=== PATIENT | male | born 1980 | race Caucasian/White ===

== ENCOUNTER 2016-05-25 05:30 | Emergency (ER) | payer MEDICARE, MEDICAID ==
[~2016-05-25 05:30] MED LIST: AMITRIPTYLINE H50 M1 PO; AMPICILLIN500 MG PO; ATIVAN0.5 MG PO; ATIVAN1 M1 PO; ATIVAN1 M2 PO; ATRIPLA TABLET1 TAB PO; BUTRANS1 EAC1 TD; COMPAZINE PO; COMPAZINE10 MG PO; CYMBALTA30 M1 PO; CYMBALTA60 M1 PO; EDURANT PO; EDURANT25 MG PO; ELAVIL GT; EPIVIR PO; EPIVIR300 MG PO; HYCET 7.5 MG-3473 M2 PO; HYDROCODONE CO; HYDROCODONE CO120 M1 PO; IBUPROFEN800 MG PO; ISENTRESS400 M1 PO; ISENTRESS400 MG PO; KLONOPIN2 M1 PO; KLONOPIN2 MG PO; LEVBID0.375 MG PO; LEXAPRO10 M1 PO; LEXAPRO5 MG PO; METOPROLOL SUC100 M1 PO; NORCO 5/325 TAB1 TAB PO; NORCO 5/3251 TAB PO; NORCO 7.5/325 T1 TAB PO; NORCO 7.5/3251 TA1 PO; NORCO 7.5/3251 TAB PO; PHENERGAN25 M1 PO; PHENERGAN25 M3 RC; PROMETHAZINE PO; PROMETHAZINE25 MG PO; TOPROL XL100 MG PO; TRAZODONE50 MG PO; VALTREX500 MG; XANAX1 MG; ZOFRAN ODT4 MG PO; ZOFRAN ODT4 MG/UDTAB PO; ZOFRAN4 MG PO
[2016-05-25 06:40] LABS: BASO % 0.5 % (0-2); BASO ABSOLUTE COUNT 0.1 tho/cmm (0.0-0.2); EOS % 0.9 % (0-7); EOSINOPHIL ABSOLUTE COUNT 0.1 tho/cmm (0.0-0.7); HCT-HEMATOCRIT 44.1 % (36.0-53.5); HGB-HEMOGLOBIN 15.7 gm/dl (13.5-17.0); IMMATURE GRANULOCYTES ABSOLUTE 0.02 tho/cmm (0-0.03); IMMATURE GRANULOCYTES PERCENT 0.2 % (0-0.3); LYMPH % 21.7 % (20-45); LYMPH ABSOLUTE COUNT 2.2 tho/cmm (0.8-4.5); MCH (MEAN CORPUSCULAR HGB) 33.6 pg (28.0-32.0); MCHC MEAN CORPUSCULAR HGB CONC 35.6 % (32.0-36.0); MCV (MEAN CELL VOLUME) 94.4 fl (82.0-96.0); MEAN PLATELET VOLUME 9.6 cmc (9.4-12.4); MONO % 8.2 % (0-12); MONOCYTE ABSOLUTE COUNT 0.8 tho/cmm (0.0-1.2); NEUTROPHILS % 68.5 % (40-80); PLATELET COUNT 245 tho/cmm (150-450); RED BLOOD COUNT 4.67 mil/cmm (4.40-5.70); RED CELL DISTRIBUTION WIDTH 12.7 % (12.4-16.4); WHITE BLOOD COUNT 10.2 tho/cmm (4.0-10.0)
[2016-05-25 07:01] LABS: ALB/GLOB RATIO 1.1 (0.8-2.0); ALBUMIN 3.9 g/dl (3.5-5.0); ALCOHOL (ETOH) <10 mg/dl (<10); ALKALINE PHOSPHATASE 56 U/L (33-138); ALT/SGPT 29 U/L (12-78); ANION GAP 17 mmol/L (0-20); AST/SGOT 18 U/L (10-40); BILIRUBIN,TOTAL 0.7 mg/dl (0.0-1.5); BLOOD UREA NITROGEN 13 mg/dl (6-24); CALCIUM 8.5 mg/dl (8.5-10.5); CARBON DIOXIDE-VENOUS 19 mmol/L (22-32); CHLORIDE 112 mmol/l (96-110); CREATININE 1.07 mg/dl (0.60-1.30); GLUCOSE 103 mg/dL (70-110); LIPASE 131 U/L (73-393); POTASSIUM 3.8 mmol/L (3.7-5.1); SODIUM 144 mmol/L (135-145); eGFR VALUE FOR BLACK >60 mL/Min
[2016-05-26] MEDS ORDERED: CLEOCIN HCL300 M1 PO (08:29)
== END 2016-05-25 07:45 | disposition left against medical advice (07) ==
LOC: EDMED 05:30
PROVIDERS: Emergency Medicine
DX: G43.A0 Cyclical vomiting, in migraine, not intractable (principal); E86.0 Dehydration; F41.9 Anxiety disorder, unspecified; Z21 Asymptomatic human immunodeficiency virus [HIV] infection status; F17.200 Nicotine dependence, unspecified, uncomplicated; Z79.899 Other long term (current) drug therapy
CPT/HCPCS: G0480; J0780; J1885; J2060; J2405; J7030

== ENCOUNTER 2016-05-28 19:12 | Emergency (ER) | payer MEDICARE, MEDICAID ==
[~2016-05-28 19:12] MED LIST changes: +CLEOCIN HCL300 M1 PO
[2016-05-28 20:31] LABS: BASO % 0.2 % (0-2); HCT-HEMATOCRIT 49.2 % (36.0-53.5); HGB-HEMOGLOBIN 17.5 gm/dl (13.5-17.0); IMMATURE GRANULOCYTES ABSOLUTE 0.02 tho/cmm (0-0.03); IMMATURE GRANULOCYTES PERCENT 0.2 % (0-0.3); LYMPH % 10.9 % (20-45); LYMPH ABSOLUTE COUNT 1.4 tho/cmm (0.8-4.5); MCH (MEAN CORPUSCULAR HGB) 33.7 pg (28.0-32.0); MCHC MEAN CORPUSCULAR HGB CONC 35.6 % (32.0-36.0); MCV (MEAN CELL VOLUME) 94.6 fl (82.0-96.0); MONO % 7.6 % (0-12); NEUTROPHIL ABSOLUTE COUNT 10.1 tho/cmm (1.6-8.0); NEUTROPHIL-AUTOMATED 10.1 tho/cmm (1.6-8.0); NEUTROPHILS % 81.1 % (40-80); PLATELET COUNT 307 tho/cmm (150-450); RED CELL DISTRIBUTION WIDTH 12.7 % (12.4-16.4); WHITE BLOOD COUNT 12.5 tho/cmm (4.0-10.0)
[2016-05-28 20:47] LABS: ALCOHOL (ETOH) <10 mg/dl (<10); ANION GAP 19 mmol/L (0-20); BLOOD UREA NITROGEN 24 mg/dl (6-24); CALCIUM 10.4 mg/dl (8.5-10.5); CARBON DIOXIDE-VENOUS 20 mmol/L (22-32); CHLORIDE 105 mmol/l (96-110); CREATININE 2.28 mg/dl (0.60-1.30); GLUCOSE 133 mg/dL (70-110); LIPASE 140 U/L (73-393); POTASSIUM 3.8 mmol/L (3.7-5.1); SODIUM 140 mmol/L (135-145); eGFR VALUE FOR BLACK 41 mL/Min
== END 2016-05-28 21:24 | disposition left against medical advice (07) ==
LOC: EDMED 19:12
PROVIDERS: Emergency Medicine
DX: N17.9 Acute kidney failure, unspecified (principal); E86.0 Dehydration; Z79.899 Other long term (current) drug therapy
CPT/HCPCS: G0480; J0780; J2060; J2405; J7030